=== PATIENT | male | born 1940 | race Caucasian/White ===

== ENCOUNTER → 2016-05-25 | Outpatient (CLI) | payer MEDICARE ==
[~2016-05-25] MED LIST: ASPIR-LOW81 MG PO; ASPIRIN EC81 MG PO; ATORVASTATIN CA80 MG PO; BUMETANIDE1 MG PO; CALCIUM600 MG PO; COLACE 100MG C100 MG PO; CORDARONE 200M200 MG PO; COREG3.125 MG PO; ELIQUIS2.5 MG PO; FINASTERIDE5 MG PO; FISH OIL 10001000 MG PO; FLOMAX 0.4 MG0.4 MG PO; FOLGARD TABLET1 EACH PO; IMDUR ER TAB 3030 MG PO; IPRAT-ALBUT 0.5-3 ML INH; ISOSORBIDE MONO30 MG PO; LANOXIN TAB0.125 MG PO; METOLAZONE5 MG PO; NORCO 7.5-3251 EACH PO; PAXIL10 MG PO; PLAVIX 75 MG TA75 MG PO; POTASSIUM CHLO10 MEQ PO; PROAIR HFA8.5 GM INH; SPIRONOLACTONE25 MG PO; SYNTHROID 25 M25 MCG PO; VITAMIN D2000 UNI1 PO; WELLBUTRIN XL300 MG PO
== END ==
LOC: RAD 10:47
DX: N18.3 Chronic kidney disease, stage 3 (moderate) (principal); I50.9 Heart failure, unspecified; R91.8 Other nonspecific abnormal finding of lung field
CPT/HCPCS: 71020

== ENCOUNTER → 2016-06-20 | Outpatient (CLI) | payer MEDICARE | LOC: HEART 5 09:01 | DX: Z79.899 Other long term (current) drug therapy (principal); R06.02 Shortness of breath; R94.2 Abnormal results of pulmonary function studies | CPT/HCPCS: 94060; 94729 ==

== ENCOUNTER 2016-07-01 10:10 | Observation (INO) | payer MEDICARE ==
[~2016-07-01] VITALS: Ht 170.2 cm; Wt 101.8 kg
[~2016-07-01 10:10] MED LIST changes: -CALCIUM600 MG PO; -FISH OIL 10001000 MG PO; -IPRAT-ALBUT 0.5-3 ML INH; -POTASSIUM CHLO10 MEQ PO
[2016-07-01 11:08] LABS: HEMOGLOBIN 14.8 gm/dl (14.0-17.5); RED BLOOD COUNT 5.02 M/UL (4.20-5.50); WHITE BLOOD COUNT 6.6 K/UL (4.5-11.0)
[2016-07-02 10:24] LABS: HEMOGLOBIN 15.9 gm/dl (14.0-17.5); RED BLOOD COUNT 5.43 M/UL (4.20-5.50)
[2016-07-02] MEDS ORDERED: FISH OIL 10001000 MG PO (10:56)
[2016-07-02] MEDS ORDERED: POTASSIUM CHLO10 MEQ PO (10:56)
[2016-07-02] MEDS ORDERED: CALCIUM600 MG PO (10:57)
[2016-07-02] MEDS ORDERED: IPRAT-ALBUT 0.5-3 ML INH (11:11)
[2016-07-04 06:25] LABS: HEMOGLOBIN 14.2 gm/dl (14.0-17.5); WHITE BLOOD COUNT 6.2 K/UL (4.5-11.0)
[2016-07-04 06:28] LABS: RED BLOOD COUNT 4.86 M/UL (4.20-5.50)
== END 2016-07-04 19:39 | disposition home or self-care (01) ==
LOC: ER1 10:10 → ZEROF 14:05 → MED SURG 4 14:05 → ZEROF 14:05 → MED SURG 4 07-02 21:29
PROVIDERS: Internal Medicine; Radiology Radiation Oncology; ADMIT Internal Medicine Infectious Disease
DX: I50.23 Acute on chronic systolic (congestive) heart failure (principal); N18.3 Chronic kidney disease, stage 3 (moderate); E87.6 Hypokalemia; I25.5 Ischemic cardiomyopathy; I13.0 Hypertensive heart and chronic kidney disease with heart failure and stage 1 through stage 4 chronic kidney disease, or unspecified chronic kidney disease; I25.10 Atherosclerotic heart disease of native coronary artery without angina pectoris; I73.9 Peripheral vascular disease, unspecified; I48.0 Paroxysmal atrial fibrillation; E78.5 Hyperlipidemia, unspecified; I27.2 Other secondary pulmonary hypertension; E03.9 Hypothyroidism, unspecified; G47.33 Obstructive sleep apnea (adult) (pediatric); D69.6 Thrombocytopenia, unspecified; M54.5 Low back pain; G89.29 Other chronic pain; J44.9 Chronic obstructive pulmonary disease, unspecified; I65.21 Occlusion and stenosis of right carotid artery; Z95.810 Presence of automatic (implantable) cardiac defibrillator; Z95.1 Presence of aortocoronary bypass graft; Z98.61 Coronary angioplasty status; Z79.01 Long term (current) use of anticoagulants; Z79.52 Long term (current) use of systemic steroids; Z79.899 Other long term (current) drug therapy
CPT/HCPCS: 36415; 70450; 71010; 80048; 80053; 82550; 82553; 83735; 83874; 83880; 84484; 85025; 93005; 94640; 94660; 94664; 96374; 96376; 99285; G0378; J1940

== ENCOUNTER 2016-09-17 21:11 | Emergency (ER) | payer MEDICARE ==
[~2016-09-17 21:11] MED LIST changes: +CALCIUM600 MG PO; +FISH OIL 10001000 MG PO; +IPRAT-ALBUT 0.5-3 ML INH; +POTASSIUM CHLO10 MEQ PO
[2016-09-17 23:21] LABS: HEMOGLOBIN 14.1 gm/dl (14.0-17.5); RED BLOOD COUNT 4.77 M/UL (4.20-5.50); WHITE BLOOD COUNT 7.6 K/UL (4.5-11.0)
== END 2016-09-18 06:05 | disposition home or self-care (01) ==
LOC: ER1 21:11
PROVIDERS: Student in an Organized Health Care Education/Training Program
DX: S20.219A Contusion of unspecified front wall of thorax, initial encounter (principal); S50.812A Abrasion of left forearm, initial encounter; I13.0 Hypertensive heart and chronic kidney disease with heart failure and stage 1 through stage 4 chronic kidney disease, or unspecified chronic kidney disease; N18.9 Chronic kidney disease, unspecified; I50.9 Heart failure, unspecified; E03.9 Hypothyroidism, unspecified; E78.5 Hyperlipidemia, unspecified; Z95.5 Presence of coronary angioplasty implant and graft; Z95.1 Presence of aortocoronary bypass graft; Z95.0 Presence of cardiac pacemaker; Z95.9 Presence of cardiac and vascular implant and graft, unspecified; Z79.82 Long term (current) use of aspirin; Z79.899 Other long term (current) drug therapy; W01.10XA Fall on same level from slipping, tripping and stumbling with subsequent striking against unspecified object, initial encounter
CPT/HCPCS: 70450; 71020; 71250; 72125; 80053; 81001; 82550; 82553; 83690; 83874; 84484; 85025; 85610; 85730; 87086; 90471; 90714; 93005; 96374; 99285; J2405